=== PATIENT | male | born 1990 | race African-American/Black ===

== ENCOUNTER 2024-10-08 01:48 | Emergency (ER) | payer SELFPAY ==
--- NOTE | ~2024-10-08 | CT_ITS ---
Non-contrast Head CT History: Headache Technique: Axial non-contrast imaging of the brain was performed. Dose reduction technique was used on this scan by utilizing automated exposure control and iterative reconstruction technique. The dose -length product (DLP) was 1362.00 mGy-cm. Findings: There is no evidence of intracranial hemorrhage, mass lesion, or acute infarct. Brain par enchyma appears normal. The ventricles and subarachnoid spaces are normal in size. The calvarium ap pears normal. The visualized paranasal sinuses and mastoid air cells are clear. Impression: No significant abnormality seen. Reviewed, dictated and finalized at location . Impression: No significant abnormality seen.
--- NOTE | ~2024-10-08 | XR_ITS ---
Portable chest x-ray Comparison: None Clinical History: Chest pain Findings: Lungs are clear, without focal consolidation or pleural effusion. Cardiomediastinal silho uette is unremarkable. Bones and soft tissues are unremarkable. Impression: Normal chest. Reviewed, dictated and finalized at location M. Impression: Normal chest.
--- NOTE | ~2024-10-08 | CT_ITS ---
Noncontrast CT scan of the internal auditory canals/temporal bones CLINICAL HISTORY: Ear pain TECHNIQUE: Axial noncontrast imaging the temporal bones/internal auditory canals was performed with c oronal and sagittal reformatted images. Dose reduction technique was used on this scan by utilizing a utomated exposure control and iterative reconstruction technique. The dose-length product (DLP) was 3 88.74 mGy-cm. Findings: Bilateral external ear canals are patent and unremarkable. Bilateral middle ear cavities ar e unremarkable. Bilateral inner ear structures are unremarkable. Mastoid air cells are clear bilatera lly. IMPRESSION: No significant abnormality identified. Reviewed, dictated and finalized at location M.
[2024-10-08 01:55] VITALS: BP 148/100; PULSE 94; RESP 18; TEMP 36.6; O2SAT 100
--- OUTSIDE RECORDS SUMMARY | 2024-10-08 02:07 | XMS_ITS | Clinical Summary ---
Author Organization [facility] Address [address] [place] [address] Care Team Providers Care Gun Perforator Name Role Phone Pcp, Pcp Primary Care Provider Unavailabl e Allergies Active Allergy Reactions Criticality Noted Date Comments Ibuprofen Nausea And Vomiting 01/03/2024 Lisinopril Angioedema High 04/15/2024 Severe angioedema of lips Flavoring Agent (Non-Screening) Swelling 04/15/2024 Medications amLODIPine (Norvasc) 5 MG tablet Take 1 tablet by mouth 1 time each day. 30 tablet 11 04/16/2024 Active hydroCHLOROthiaz agustina 12.5 MG tablet Take 1 tablet by mouth 1 time each day. 30 tablet 04/16/2024 Active Active Problems Problem Noted Date Diagnosed Date Angioedema of lips, initial encounter 04/15/2024 HTN (hypertension) 04/15/2024 Hyponatremia 04/15/2024 Hyperbilirubinemia 04/15/2024 Simple obesity 04/15/2024 Right knee pain 04/15/2024 Tobacco abuse 04/15/2024 Social History Tobacco Use Types Packs/Day Years Used Date Smoking Tobacco: Every Day Cigarettes Tobacco Cessation:Ready to Q uit: Not Asked; Counseling Given: Not Answered Alcohol Use Standard Drinks/Week Comments Never 0 (1 standard drink = 0.6 oz pur e alcohol) Humiliation, Afraid, Rape, and Kick questionnair e Answer Date Recorded Within the last year, have y ou been afraid of your partner or ex-partner? Patient declined 04/16/2024 Within the last year, have y ou been humiliated or emotionally abused in other ways by your partner or ex-partner? Patient declined 04/16/2024 Within the last year, have y ou been kicked, hit, slapped, or otherwise physically hurt by your partner or ex-partner? Patient declined 04/16/2024 Within the last year, have y ou been raped or forced to have any kind of sexual activity by your partner or ex-partner? Patient declined 04/16/2024 AUDIT-C Answer Date Recorded Q1: How often do you have a drink containing alc ohol? Patient declined 04/16/2024 Q2: How many drinks containi ng alcohol do you have on a typical day when you are drinking? Patient declined 04/16/2024 Q3: How often do you have si x or more drinks on one occasion? Patient declined 04/16/2024 Sex and Gender Information Value Date Recorded Sex Assigned at Male 09/24/2023 12:02 PM CDT Legal Sex Male 12:02 PM CDT Gender Identity Male 09/24/2023 12:02 PM CDT Sexual Orientation Not on file Last Filed Vital Signs Vital Sign Reading Time Taken Comments Blood Pressure 159/110 04/16/2024 7:41 AM CDT Pulse 108 04/16/2024 7:41 AM CDT Temperature 36.8 C (98.3 F) 04/16/2024 7:39 AM CDT Respiratory Rate 16 04/16/2024 7:41 AM CDT Oxygen Saturation 100% 04/16/2024 7:41 AM CDT Inhaled Oxygen Concentration - - Weight 94.8 kg (209 lb) 04/15/2024 7:36 PM CDT Height 172.7 cm (5' 8 ) 04/15/2024 7:36 PM CDT Body Mass Index 31.78 04/15/2024 7:36 PM CDT Plan of Treatment Health Maintenance Due Date Last Done Comments Lipid Panel 1992 Annual Physical 01/23/1995 Varicella Vaccines (1 of 2 - 13+ 2-dose series) 01/23/2005 Hepatitis B Vaccines (1 of 3 - 19+ 3-dose series) 01/23/2011 Pneumococcal Vaccine: Pediat rics (0 to 5 Years) and At-Risk Patients (6 to 64 Years) (1 of 2 - PCV) 01/23/2011 Influenza Vaccine (Season Ended) 2025 DTaP/Tdap/Td Vaccines (2 - T d or Tdap) 06/14/2031 06/14/2021 HIB Vaccines Aged Out No longer eligi ble based on patient's age to complete this topic HPV Vaccines Aged Out No longer eligi ble based on patient's age to complete this topic Hepatitis A Vaccines Aged Out No long er eligible based on patient's age to complete this topic IPV Vaccines Aged Out No longer eligi ble based on patient's age to complete this topic Meningococcal Vaccine Aged Out No cintia carrie eligible based on patient's age to complete this topic Rotavirus Vaccines Aged Out No longer eligible based on patient's age to complete this topic Additional Health Concerns Infection Onset Date Last Indicated Sheyla auris (confirmed) 04/16/20242023 Advance Directives * Full Code (Latest Code Status on File) Date Activated Date Inactivated Comments 04/15/2024 10:14 PM 04/16/2024 3:05 PM Care Teams Gun Perforator Relationship Specialty Start Date End Date Pcp, Pcp [address] [place] [id number] PCP - General Family Medicine 04/15/24
--- OUTSIDE RECORDS SUMMARY | 2024-10-08 02:07 | XMS_ITS | Clinical Summary ---
Author Organization [facility] Address [address] [place] [address] Care Team Providers Care Treasury Associate Name Role Phone Unavailable Primary Care Provider Unavailabl e Source Comments PLEASE NOTE, if this patient is a minor, it may be UNLAWFUL to discuss sensitive information that is contained in these records (such as FAMILY PLANNING, MENTAL HEALTH or SUBSTANCE ABUSE) with the minor patient's parent or other person without the patient's specific authorization.[facility] Allergies No known active allergies Social History Tobacco Use Types Packs/Day Years Used Date Smoking Tobacco: Every Day Cigarettes Smokeless Tobacco: Never Comments:3 a day Alcohol Use Standard Drinks/Week Comments Yes 0 (1 standard drink = 0.6 oz pur e alcohol) socially Social Connections Answer Date Recorded Social Connections and Isolation 0 02/26/2019 Financial Resource Strain Answer Date R ecorded Financial Resource Strain 0 2018 Stress Answer Date Recorded Stress 0 02/26/2019 Physical Activity Answer Date Recorded Physical Activity 0 02/26/2019 Food Insecurity Answer Date Recorded Food 0 02/26/2019 Transportation Needs Answer Date Record ed Transportation 0 02/26/2019 Housing Stability Answer Date Recorded Housing 0 02/26/2019 Safety and Environment Answer Date Alphonse rded Safety 0 02/26/2019 Utilities Answer Date Recorded Utilities 0 02/26/2019 Employment Answer Date Recorded Employment 0 02/26/2019 Sex and Gender Information Value Date Recorded Sex Assigned at Male 01/09/2018 2:28 PM PDT Legal Sex Male 1:35 PM PDT Gender Identity Male 01/09/2018 2:28 PM PDT Sexual Orientation Straight 01/09/2018 2: 28 PM PDT Last Filed Vital Signs Vital Sign Reading Time Taken Comments Blood Pressure 137/86 01/09/2018 4:27 PM CDT Pulse 87 01/09/2018 4:27 PM CDT Temperature - - Respiratory Rate - - Oxygen Saturation - - Inhaled Oxygen Concentration - - Weight 102.1 kg (225 lb) 01/09/2018 4:27 PM CDT Height 189 cm (6' 2.4 ) 01/09/2018 4:27 PM CDT Body Mass Index 28.58 01/09/2018 4:27 PM CDT Plan of Treatment Not on file
--- OUTSIDE RECORDS SUMMARY | 2024-10-08 02:07 | XMS_ITS | Clinical Summary ---
Author Organization [facility] [place] [address] Care Team Providers Care Anesthesia Associate Name Role Phone Unavailable Primary Care Provider Unavailabl e Social History Tobacco Use Types Packs/Day Years Used Date Smoking Tobacco: Never Assessed Sex and Gender Information Value Date Recorded Sex Assigned at Not on file Legal Sex Male 1:35 PM CDT Gender Identity Not on file Sexual Orientation Not on file Plan of Treatment Health Maintenance Due Date Last Done Comments Varicella Vaccines (1 of 2 - 13+ 2-dose series) 01/23/2005 TETANUS SHOT (ADULT) 01/23/2007 HIV Screening Result Console 01/23/2010 Hepatitis B Vaccine (1 of 3 - 19+ 3-dose series) 01/23/2011 Flu Vaccine > 6 Months 02/02/2024 COVID-19 Vaccine (2023-2 5 season) 2024 HPV Vaccine Aged Out No longer eligi ble based on patient's age to complete this topic Hepatitis A HMT Aged Out No longer el igible based on patient's age to complete this topic MENINGOCOCCAL ACWY Aged Out No longer eligible based on patient's age to complete this topic Pneumococcal Combined Aged Out No cintia carrie eligible based on patient's age to complete this topic Insurance [facility]
--- OUTSIDE RECORDS SUMMARY | 2024-10-08 02:07 | XMS_ITS | Encounter Summary ---
Author Organization [facility] Address [address] [place] [address] Care Team Providers Care Ceiling Installer Name Role Phone Bernardino Umana MD Primary Care Provider [phone] Annika Main MD Primary Care Provider [phone] Pcp, Reassigned Primary Care Provider Unavailabl e Pcp, Patient Does Not Have Primary Care Provider Unavailable Encounter Details Date Type Department Care Team (Late st Contact Info) Description 06/13/2014 Orders Only [place], [place] Marcus Hassan Social History Tobacco Use Types Packs/Day Years Used Date Smoking Tobacco: Never Assessed Sex and Gender Information Value Date Recorded Sex Assigned at Not on file Gender Identity Not on file Sexual Orientation Not on file documented as of this encounter Plan of Treatment Not on file documented as of this encounter Visit Diagnoses Not on filedocumented in this encounter Care Teams Ceiling Installer Relationship Specialty Start Date End Date Bernardino Umana MD PCP - General Family Practice 10/11/14 11/01/15 Annika Main MD [address] [place] [address] PCP - General 11/02/15 08/28/17 Pcp, Reassigned PCP - General 08/29/17 08/30/17 Pcp, Patient Does Not Have PATIENT DOES NOT HAVE PCP PCP - General 12/27/23 documented as of this encounter
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
--- OUTSIDE RECORDS SUMMARY | 2024-10-08 02:07 | XMS_ITS | Clinical Summary ---
Author Organization [facility] Address [address] [place] [address] Care Team Providers Care Overcaster Name Role Phone Unavailable Primary Care Provider Unavailabl e Allergies No known active allergies Medications acetaminophen-code ine (TYLENOL #3) 300-30 mg per tablet . 10/04/2017 Active cyclobenzaprine (FLEXERIL) 10 MG tablet . 10/04/2017 Active Social History Tobacco Use Types Packs/Day Years Used Date Smoking Tobacco: Former Smokeless Tobacco: Former Alcohol Use Standard Drinks/Week Comments No 0 (1 standard drink = 0.6 oz pur e alcohol) Sex and Gender Information Value Date Recorded Sex Assigned at Not on file Legal Sex Male 7:04 PM CDT Gender Identity Not on file Sexual Orientation Not on file Last Filed Vital Signs Vital Sign Reading Time Taken Comments Blood Pressure 172/96 10/18/2017 7:15 PM CDT Pulse 97 10/18/2017 7:15 PM CDT Temperature 37.4 C (99.4 F) 10/18/2017 7:15 PM CDT Respiratory Rate 18 10/18/2017 7:15 PM CDT Oxygen Saturation 97% 10/18/2017 7:15 PM CDT Inhaled Oxygen Concentration - - Weight 108.4 kg (239 lb) 10/18/2017 7:15 PM CDT Height 188 cm (6' 2 ) 10/18/2017 7:15 PM CDT Body Mass Index 30.69 10/18/2017 7:15 PM CDT Plan of Treatment Not on file
--- OUTSIDE RECORDS SUMMARY | 2024-10-08 02:07 | XMS_ITS | Referral Summary ---
Author Organization [facility] Address [address] [place] [address] Care Team Providers Care Labor Standards Director Name Role Phone Unavailable Primary Care Provider [...]
--- NOTE | 2024-10-08 02:20 | ED_ITS ---
HPI - Ear Problem General Chief complaint: Ear Stated complaint: ear pain Time Seen by Provider: 10/08/24 01:57 Source: patient and EMS Mode of arrival: EMS Limitations: intoxication History of Present Illness HPI Narrative: Patient presents with report of left ear pain as well a headache. He states that the headache feels like it comes from middle of his head. He reports having a cough earlier but this improved. 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 He does not know if he has been having any chest pain or shortness of breath. He does state he drank alcohol earlier. He denies any recreational drugs. States he was diagnosed with an ear infection 09/17/2024 at an urgent care and prescribed ear drops, amoxicillin, and ibuprofen. He missed a couple doses here and there but essentially his treatment is finished as he only has 1 pill left. He has had increasing pain particularly on the left side of his head. He took 3 Excedrin 30 minutes prior to arrival. He states he believes it is just the weather causing his issues. He does not know if he has been having fevers or chills he reports he has to sleep with the heat on. He denies any drainage from the ear or hearing changes. When asked if he has had any behavioral changes he states that people have told him he has been more silent lately but he doesn't know. Denies any dental pain, nasal drainage or nasal congestion. 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 HEAD: Normocephalic, atraumatic. EYES: Non injected, non icteric ENT: Nares clear, no rhinorrhea or epistaxis. Pinnae are not protruding or tender to palpation. Reports mild tenderness to palpation of the left mastoid but without appreciable abnormality. Bilateral TMs easily visualized without effusion, erythema, vesicles, bulging. NECK: Supple. CHEST: Speaking in full sentences. No respiratory distress. HEART: Regular rate and rhythm. . ABDOMEN: Soft, nondistended. EXTREMITIES: Normal range of motion. No lower extremity edema. SKIN: Warm, dry, no rash. NEURO: No focal deficits. Alert and oriented x3. PSYCH: Normal mood and affect. Course Vital Signs Vital signs: Vital Signs Temperature 97.9 F 10/08/24 01:55 Pulse Rate 94 10/08/24 01:55 Respiratory Rate 18 10/08/24 01:55 Blood Pressure 148/100 H 10/08/24 01:55 Pulse Oximetry 100 10/08/24 01:55 Oxygen Delivery Room Air 10/08/24 01:55 Temperature 97.9 F 10/08/24 01:55 Pulse Rate 94 10/08/24 07:30 Respiratory Rate 16 10/08/24 07:30 Blood Pressure 112/71 10/08/24 07:30 Pulse Oximetry 100 10/08/24 07:30 Oxygen Delivery Room Air 10/08/24 01:55 Medical Decision Making MDM Narrative Medical decision making narrative: Patient presents with report of left ear pain as well as a headache. Recently diagnosed with an ear infection on the left on 09/17/2024 and nearly completed treatment. In the emergency department he is afebrile with vital signs notable for hypertension. Patient took 3 Excedrin before he came thus he has already received an appropriate dose of acetaminophen and aspirin with the addition of caffeine. In patient's age group, otitis media is likely to be viral and either way should have resolved after antibiotic coverage even if bacterial. It is highly unusual that it would be refractory to a course of antibiotics thus a broader work up is pursued, especially given patient endorsing associated headache, possible behavior change, and subjective tenderness to palpation along the mastoid. Patient states he is also out of his antihypertensives and these will be refilled for him. There is an issue with these medications not printing so handwritten copies are provided. Normocytic anemia and thrombocytosis with no prior for comparison. ESR and CRP normal. Ethanol is 175 so legal sobriety is in 3.5-4 hours, i.e. 6:30-7am or sooner with safe ride. Creatinine is elevated with no prior for comparison, suspect FE versus possible CKD however otherwise young and healthy. IV fluids ordered. Patient is reassessed at 6:45 a.m. He is somnolent, sleeping. Arouses to loud verbal stimuli. He states his ear pain is 5/10 and his headache is completely resolved, 0/10. Given his thorough workup not reveal an etiology, will give patient ketorolac and a nasal decongestant. Differential Diagnosis Differential Diagnosis: Mastoiditis, brain abscess, sinus congestion; inflammation; recurrent otitis media/necrotizing/ otitis externa; psychogenic/secondary gain Vital Signs Vital Signs: Vital Signs Temperature 97.9 F 10/08/24 01:55 Pulse Rate 94 10/08/24 01:55 Respiratory Rate 18 10/08/24 01:55 Blood Pressure 148/100 H 10/08/24 01:55 Pulse Oximetry 100 10/08/24 01:55 Oxygen Delivery Room Air 10/08/24 01:55 Temperature 97.9 F 10/08/24 01:55 Pulse Rate 94 10/08/24 07:30 Respiratory Rate 16 10/08/24 07:30 Blood Pressure 112/71 10/08/24 07:30 Pulse Oximetry 100 10/08/24 07:30 Oxygen Delivery Room Air 10/08/24 01:55 Lab Data Lab results reviewed: Yes I reviewed the patient's lab results. Lab results narrative: Viral swab negative 10/08/24 03:07 10/08/24 03:07 Labs: Lab Results 10/08/24 Range/Units 03:07 WBC 8.2 (4.5-10.0) K/mm3 RBC 4.53 L (4.6-6.20) M/mm3 Hgb 12.8 L (14.0-18.0) g/dL Hct 40.9 L (42.0-52.0) % MCV 90.3 (80-100) fl MCH 28.3 (26-34) pg MCHC 31.3 L (32-36) g/dl RDW 16.5 H (11.5-14.5) % Plt Count 391 H (150-375) k/mm3 MPV 10.2 (7.4-10.4) fl Immature Gran % (Auto) 0.2 (0-0.5) % Neut % (Auto) 58.1 (45.5-73.1) % Lymph % (Auto) 28.7 (18.3-44.2) % [place] % (Auto) 8.3 (2.6-8.5) % Eos % (Auto) 4.2 (0-4.4) % Baso % (Auto) 0.5 (0.2-1.2) % Lymph # (Auto) 2.35 (0.9-3.2) K/mm3 [place] # (Auto) 0.7 H (0.1-0.6) K/mm3 Eos # (Auto) 0.3 (0-0.3) K/mm3 Baso # (Auto) 0.0 (0.0-0.1) K/mm3 Abs Immat Gran (auto) 0.02 (0.00-0.031) K/mm3 Absolute Neuts (auto) 4.8 (1.3-6.7) K/mm3 Absolute Nucleated RBC 0.000 (0.0-0.012) K/mm3 Nucleated RBC % 0.0 (0.0-0.2) % ESR 11 (0-20) mm/hr Sodium 141 (137-145) mmol/L Potassium 3.7 (3.4-5.0) mmol/L Chloride 105 (98-107) mmol/L Carbon Dioxide 23 (22-30) mmol/L Anion Gap 13 H (4-12) mmol/L BUN 15 (9-20) mg/dL Creatinine 1.33 H (0.7-1.3) mg/dL Estim Creat Clear Calc 83 ml/min Estimated GFR > 60 (59 - ) Glucose 113 H (65-110) mg/dL Calcium 8.5 (8.4-10.2) mg/dL C-Reactive Protein < 0.5 (<1.0) mg/dL Ethyl Alcohol 175 (<10) mg/dL Influenza A (RT-PCR) Negative (Negative) Influenza B (RT-PCR) Negative (Negative) RSV (RT-PCR) Negative (Negative) SARS-CoV-2 RNA (RT-PCR) Negative (Negative) Imaging Data Attestation: I personally reviewed and interpreted this imaging study as follows: My impression: No acute intrathoracic process independent interpretation of chest x-ray Radiologist's impression: Impression: Normal chest. Impression: No significant abnormality seen. IMPRESSION: No significant abnormality identified. ECG Data EKG #1: Attestation: I personally reviewed and interpreted this ECG as follows: ECG completion date: 10/08/24 ECG completion time: 03:02 Interpretation: Normal sinus rhythm at a rate of 89 beats per minute. SC interval 148. QRS 86. QT/QTC 347/394. Good R-wave progression across the precordial leads. T-wave inversion in 3 but appears upright in contiguous inferior leads 2 and AVF. Slight T-wave flattening V4 other mark no adán T-wave inversions Discharge Plan Discharge Clinical Impression: Left ear pain, Headache, Encounter for medication refill, Normocytic anemia, Thrombocytosis, Acute alcohol intoxication, FE (acute kidney injury) Instructions: Antibiotic Form, Acute Kidney Injury (DC), Alcohol Intoxication (DC), Earache (ED), Anemia (ED), General Headache (ED) Additional Instructions: The cause for persistent your pain is unclear as there does not appear to be an infection in the ear, behind the ear, within your brain, etc. We even went so far as to obtain CT imaging. Sometimes some general congestion/inflammation can cause this pain because it compresses on the to the that drains from the ear, the eustachian tube. You can trial the nasal spray prescribed. A 30 day refill of your blood pressure medications is also being prescribed. You had some mild kidney dysfunction which is likely due to a bit of dehydration (this can often be seen when drinking alcohol) and you received 1 L IV fluids. Follow-up with primary care physician back home. Alternatively, if you stay in the area, the name the doctors listed below. Return to the emergency department with any new or worsening symptoms. Patient Language: Macedonian Prescriptions: New amlodipine 5 mg tablet 5 mg PO DAILY Qty: 30 0RF hydrochlorothiazide 12.5 mg tablet 12.5 mg PO DAILY Qty: 30 0RF oxymetazoline 0.05 % mist 2 spray intranasal Q12H PRN (Reason: nasal congestion) 5 Days Qty: 15 0RF Rx Instructions: do not use for more than 5 days Follow-up/Referrals: Issac Lee MD [Physician] - UNKNOWN,DOCTOR [Primary Care Provider] - Stand Alone Forms: Work/School Release IP Time of Disposition: 07:19
--- NOTE | 2024-10-08 02:33 | ECG_ITS ---
Test Date: 2024-10-08 03:02:04 Measurements Intervals [place] Rate: 89 P: 47 GA: 148 QRS: 18 QRSD: 86 T: -5 QT: 347 QTc: 423 Interpretive Statements SINUS RHYTHM LOW QRS VOLTAGE IN PRECORDIAL LEADS CANNOT R/O SEPTAL INFARCT, AGE INDETERMINATE BORDERLINE ST-T WAVE ABNORMALITY- ANTEROLAT/INF LEADS ABNORMAL ECG No previous ECG available for comparison Electronically Signed On 10-08-2024 06:16:23 CDT by Steve Noyola D.O.
[2024-10-08 03:23] LABS: Basophils Percent Auto 0.5 % (0.2-1.2); Eosinophils Absolute Auto 0.3 K/mm3 (0-0.3); Eosinophils Percent Auto 4.2 % (0-4.4); Hematocrit 40.9 % (42.0-52.0); Hemoglobin 12.8 g/dL (14.0-18.0); Immature Granulocyte Absolute 0.02 K/mm3 (0.00-0.031); Immature Granulocyte Percent A 0.2 % (0-0.5); Lymphocytes Absolute Auto 2.35 K/mm3 (0.9-3.2); Lymphocytes Percent Auto 28.7 % (18.3-44.2); Mean Corpuscular HGB Conc 31.3 g/dl (32-36); Mean Corpuscular Hemoglobin 28.3 pg (26-34); Mean Corpuscular Volume 90.3 fl (80-100); Mean Platelet Volume 10.2 fl (7.4-10.4); Monocytes Absolute Auto 0.7 K/mm3 (0.1-0.6); Monocytes Percent Auto 8.3 % (2.6-8.5); Neutrophils Absolute Auto 4.8 K/mm3 (1.3-6.7); Neutrophils Percent Auto 58.1 % (45.5-73.1); Platelet Count Result 391 k/mm3 (150-375); Red Blood Count 4.53 M/mm3 (4.6-6.20); Red Cell Distribution Width 16.5 % (11.5-14.5); White Blood Count 8.2 K/mm3 (4.5-10.0)
[2024-10-08 03:33] LABS: Ethanol 175 mg/dL (<10)
[2024-10-08 03:37] LABS: Anion Gap 13 mmol/L (4-12); Blood Urea Nitrogen 15 mg/dL (9-20); CRP < 0.5 mg/dL (<1.0); Calcium 8.5 mg/dL (8.4-10.2); Carbon Dioxide 23 mmol/L (22-30); Chloride 105 mmol/L (98-107); Estimated CRCL calculation 83 ml/min; Estimated Glomerular Filt Rate > 60; Glucose 113 mg/dL (65-110); Potassium 3.7 mmol/L (3.4-5.0); Sodium 141 mmol/L (137-145)
[2024-10-08 03:48] LABS: Erythrocyte Sedimentation Rate 11 mm/hr (0-20)
[2024-10-08 03:57] LABS: Influenza A QL RT-PCR Negative (Negative); Influenza B QL RT-PCR Negative (Negative); RSV RNA, RT-PCR Negative (Negative); SARS-CoV-2 RNA PCR Negative (Negative)
[2024-10-08 04:20] VITALS: BP 130/72; PULSE 84; RESP 20; O2SAT 96
[2024-10-08 05:15] VITALS: BP 116/76; PULSE 81; RESP 19; O2SAT 95
[2024-10-08] MEDS: SODIUM CHLORIDE 0.9% IV 1,000 ML 999 ML IV CONT (05:18)
[2024-10-08 06:00] VITALS: BP 114/56; PULSE 83; RESP 20; O2SAT 97
[2024-10-08] MEDS: OXYMETAZOLINE HCL 0.05% NAS 15 ML BTL (*BKC) 1 SPRAY NASAL (07:04)
[2024-10-08] MEDS: KETOROLAC 15 MG/ML VIAL (*BKC) IV PUSH (07:04)
[2024-10-08 07:30] VITALS: BP 112/71; PULSE 94; RESP 16; O2SAT 100
== END 2024-10-08 07:31 | disposition home or self-care (01) ==
PROVIDERS: Emergency Provider Student in an Organized Health Care Education/Training Program
DX: R51.9 Headache, unspecified (principal); H92.02 Otalgia, left ear; N17.9 Acute kidney failure, unspecified; D64.9 Anemia, unspecified; D69.6 Thrombocytopenia, unspecified; F10.129 Alcohol abuse with intoxication, unspecified; Y90.6 Blood alcohol level of 120-199 mg/100 ml; Z20.822 Contact with and (suspected) exposure to COVID-19; R94.31 Abnormal electrocardiogram [ECG] [EKG]
CPT/HCPCS: 36415; 70450; 70481; 71045; 80048; 82077; 85025; 85652; 86140; 87637; 93005; 96361; 96374; 99284; A9270; J1885; J7030; Q9967